=== PATIENT | female | born 1995 | race African-American/Black ===

== ENCOUNTER 2019-11-21 19:20 | Inpatient (IN) ==
[2019-11-21 19:53] LABS: Apearance,Urine CLEAR (Clear); Bacteria,Urine Occasional /HPF (Few); Bilirubin,Urine Negative (Negative); Blood, Urine Negative (Negative); Glucose,Urine (UA) Negative (Negative); Ketones,Urine Negative (Negative); Mucus,Urine Occasional /LPF (Occasional); Nitrite,Urine Negative (Negative); Protein,Urine Negative; RBC,Urine 1 /HPF (0-4); Squamous Epithelial Cell,Urine Occasional /HPF (0-10); Urine Color Straw (Yellow); Urine Specific Gravity 1.006 (1.001-1.035); Urine Urobilinogen < 2.0 EU/DL (0.2-1.0); WBC,Urine 5 /HPF (0-6)
[2019-11-21] MEDS ORDERED: LACTATED RINGERS 1,000 ML IV ONE (20:02)
[2019-11-21] MEDS ORDERED: AMPICILLIN INJ 2,000 MG in SODIUM CHLORIDE 0.9% 100 ML IV ONE (20:29)
[2019-11-21] MEDS ORDERED: CITRIC ACID/SODIUM CITRATE 30 ML UDCUP PO PRN (21:56)
[2019-11-21] MEDS ORDERED: ceFAZolin 2,000 MG in PREMIX 1 EACH IV PRN (21:56)
[2019-11-21] MEDS ORDERED: FAMOTIDINE 20 MG/2 ML VIAL IV PRN (21:56)
[2019-11-21] MEDS: LACTATED RINGERS 1,000 ML IV SCH (22:12)
[2019-11-22 05:53] LABS: Basophils % 0.4 % (0.0-0.8); Eosinophils # 0.1 10*3/uL (0.0-0.87); Eosinophils % 1.4 % (0.00-10.9); Hematocrit 30.7 VOL% (35.7-47.0); Hemoglobin 10.2 GM/DL (12.0-16.0); Immature Granulocytes % 0.9 %; Immature Granulocytes Absolute 0.06 #; Lymphocytes # 3.1 10*3/uL (1.4-4.0); Lymphocytes % 43.6 % (21.3-54.2); Mean Corpuscular HGB Conc 33.2 GM/DL (32-36); Mean Corpuscular Volume 88.5 FL (87-102); Mean Platelet Volume 11.6 FL (9.6-12.0); Neutrophils % 45.7 % (38.7-73.9); Platelet Count 164 T/CUMM (130-400); Red Blood Count 3.47 MC/CUMM (3.8-5.5); Red Cell Distribution Width 13.8 % (9.3-17.3)
[2019-11-22 06:16] LABS: Albumin 2.2 G/DL (3.4-5.0); Bilirubin,Total 0.4 MG/DL (0.2-1.0); Calcium 8.2 MG/DL (8.5-10.1); Osmolality,Calculated 281.8 MOS/KG (273-304)
[2019-11-22] MEDS ORDERED: OXYTOCIN 10 UNIT/ML VIAL IM ONE (07:37)
[2019-11-22] MEDS ORDERED: OXYTOCIN/LR 30 UNIT/1,000 ML BAG IV ONE (07:37)
[2019-11-22] MEDS: LACTATED RINGERS 1,000 ML IV SCH (09:41)
[2019-11-22] MEDS ORDERED: IBUPROFEN 800 MG TABLET PO PRN (11:15)
[2019-11-22] MEDS ORDERED: RHO(D) IMMUNE GLOBULIN 300 MCG SYRINGE IM ONE (11:15)
[2019-11-22] MEDS ORDERED: ACETAMINOPHEN 325 MG TABLET PO PRN ×2 (11:15→11:42)
[2019-11-22] MEDS ORDERED: SIMETHICONE CHEW 80 MG TABLET PO PRN ×2 (11:15→11:42)
[2019-11-22] MEDS ORDERED: OXYTOCIN/LR 20 UNIT/1,000 ML BAG IV ONE ×2 (11:15→11:42)
[2019-11-22] MEDS ORDERED: ONDANSETRON 4 MG/2 ML VIAL IV PRN ×2 (11:15→11:42)
[2019-11-22 11:17] LABS: Apearance,Urine CLEAR (Clear); Bilirubin,Urine Negative (Negative); Blood, Urine Negative (Negative); Glucose,Urine (UA) Negative (Negative); Ketones,Urine 20 mg/dL (Negative); Mucus,Urine Occasional /LPF (Occasional); Nitrite,Urine Negative (Negative); Protein,Urine Negative; RBC,Urine <1 /HPF (0-4); Squamous Epithelial Cell,Urine Occasional /HPF (0-10); Urine Color Yellow (Yellow); Urine Specific Gravity 1.011 (1.001-1.035); Urine Urobilinogen < 2.0 EU/DL (0.2-1.0); WBC,Urine 1 /HPF (0-6)
[2019-11-22 11:26] LABS: Cord Arterial Blood HCO3 20.8 MMOL/L
[2019-11-22] MEDS ORDERED: MORPHINE 10 MG/10 ML VIAL ONE (11:26)
[2019-11-22] MEDS ORDERED: GLYCOPYRROLATE 0.4 MG/2 ML VIAL ONE (11:26)
[2019-11-22] MEDS ORDERED: fentaNYL 100 MCG/2 ML VIAL ONE (11:26)
[2019-11-22] MEDS ORDERED: PHENYLEPHRINE 1 MG/10 ML SYRINGE IV ONE (11:26)
[2019-11-22 11:27] LABS: Cord Venous Blood HCO3 24.4 MMOL/L; Cord Venous Blood PCO2 47.5 MMHG
[2019-11-22] MEDS ORDERED: BUPIVACAINE SPINAL 0.75% 2 ML AMP SPINAL ONE (11:27)
[2019-11-22] MEDS ORDERED: LACTATED RINGERS 1,000 ML IV SCH (11:30)
[2019-11-22] MEDS ORDERED: MAGNESIUM HYDROXIDE SUSP 30 ML UDCUP PO PRN (11:42)
[2019-11-22] MEDS ORDERED: HYDROmorphone 2 MG/1 ML VIAL IV ONE (13:18)
[2019-11-22] MEDS ORDERED: SODIUM CHLORIDE 0.9% 50 ML IV ONE (17:40)
[2019-11-22] MEDS: ceFAZolin 1,000 MG in SYRINGE 1 EACH IV SCH (17:47)
[2019-11-22 19:31] LABS: Basophils % 0.2 % (0.0-0.8); Eosinophils % 0.4 % (0.00-10.9); Hematocrit 32.6 VOL% (35.7-47.0); Hemoglobin 10.7 GM/DL (12.0-16.0); Immature Granulocytes % 0.5 %; Immature Granulocytes Absolute 0.04 #; Lymphocytes # 1.7 10*3/uL (1.4-4.0); Mean Corpuscular HGB Conc 32.8 GM/DL (32-36); Mean Corpuscular Volume 88.1 FL (87-102); Mean Platelet Volume 11.5 FL (9.6-12.0); Monocytes % 7.9 % (1.7-12.7); Platelet Count 159 T/CUMM (130-400); Red Cell Distribution Width 13.7 % (9.3-17.3); White Blood Count 8.4 T/CUMM (4-12)
[2019-11-22] MEDS ORDERED: DOCUSATE SODIUM 100 MG CAPSULE PO SCH (21:00)
[2019-11-22] MEDS: DOCUSATE SODIUM 100 MG CAPSULE PO SCH (21:18)
[2019-11-23] MEDS: ceFAZolin 1,000 MG in SYRINGE 1 EACH IV SCH (02:17)
[2019-11-23 05:30] LABS: Basophils % 0.3 % (0.0-0.8); Eosinophils # 0.1 10*3/uL (0.0-0.87); Eosinophils % 0.8 % (0.00-10.9); Hematocrit 27.6 VOL% (35.7-47.0); Hemoglobin 9.2 GM/DL (12.0-16.0); Immature Granulocytes % 0.6 %; Immature Granulocytes Absolute 0.05 #; Lymphocytes # 2.1 10*3/uL (1.4-4.0); Lymphocytes % 26.8 % (21.3-54.2); Mean Corpuscular HGB Conc 33.3 GM/DL (32-36); Mean Corpuscular Volume 88.2 FL (87-102); Mean Platelet Volume 11.3 FL (9.6-12.0); Neutrophils % 63.5 % (38.7-73.9); Platelet Count 144 T/CUMM (130-400); Red Blood Count 3.13 MC/CUMM (3.8-5.5); Red Cell Distribution Width 13.5 % (9.3-17.3); White Blood Count 7.9 T/CUMM (4-12)
[2019-11-23] MEDS ORDERED: MULTIVITAMIN (PRENATAL) TABLET PO SCH (09:00)
[2019-11-23] MEDS: MULTIVITAMIN (PRENATAL) TABLET PO SCH (09:30)
[2019-11-23] MEDS: FERROUS SULFATE 325 MG TABLET PO SCH ×2 (09:30→21:59)
[2019-11-23] MEDS: MAGNESIUM HYDROXIDE SUSP 30 ML UDCUP PO PRN ×2 (09:30→21:59)
[2019-11-23] MEDS: DOCUSATE SODIUM 100 MG CAPSULE PO SCH ×2 (09:30→21:59)
[2019-11-23] MEDS: POTASSIUM CHLORIDE 20 MEQ TABLET PO SCH ×2 (09:30→21:59)
[2019-11-23] MEDS: IBUPROFEN 800 MG TABLET PO PRN ×2 (10:00→18:39)
[2019-11-23] MEDS: METOCLOPRAMIDE 10 MG TABLET PO SCH (23:59)
[2019-11-24] MEDS: FERROUS SULFATE 325 MG TABLET PO SCH (08:41)
[2019-11-24] MEDS: MULTIVITAMIN (PRENATAL) TABLET PO SCH (08:41)
[2019-11-24] MEDS: IBUPROFEN 800 MG TABLET PO PRN (08:41)
[2019-11-24] MEDS: DOCUSATE SODIUM 100 MG CAPSULE PO SCH (08:41)
[2019-11-24] MEDS: POTASSIUM CHLORIDE 20 MEQ TABLET PO SCH (08:41)
[2019-11-24] MEDS: METOCLOPRAMIDE 10 MG TABLET PO SCH (08:42)
[2019-11-24] MEDS ORDERED: MAGNESIUM HYDROXIDE SUSP 30 ML UDCUP PO SCH (09:00)
[2019-11-24 09:38] VITALS: BP 119/67
== END 2019-11-24 11:20 | disposition home or self-care (01) | DRG 788 ==
LOC: N.LDOUT 19:20 → N.LD 19:22 → N.OB 11-22 15:32
PROVIDERS: ADMIT Obstetrics & Gynecology; ATTEND Obstetrics & Gynecology
PROC: LDCSECT (ICD-10-PCS; 2019-11-22 09:30)

== ENCOUNTER 2020-10-17 09:57 | Inpatient (IN) ==
[2020-10-17] MEDS ORDERED: FAMOTIDINE 20 MG/2 ML VIAL IV ONE (10:22)
[2020-10-17] MEDS ORDERED: ceFAZolin 2,000 MG in PREMIX 1 EACH IV ONE (10:22)
[2020-10-17] MEDS ORDERED: CITRIC ACID/SODIUM CITRATE 30 ML UDCUP PO ONE (10:22)
[2020-10-17] MEDS ORDERED: OXYTOCIN 10 UNIT/ML VIAL IM ONE (10:24)
[2020-10-17] MEDS ORDERED: OXYTOCIN/LR 30 UNIT/1,000 ML BAG IV ONE (10:24)
[2020-10-17] MEDS ORDERED: LACTATED RINGERS 1,000 ML IV ONE ×2 (10:24→15:21)
[2020-10-17] MEDS ORDERED: LACTATED RINGERS 1,000 ML IV SCH ×2 (10:30→16:30)
[2020-10-17 10:58] LABS: Basophils % 0.3 % (0.0-0.8); Eosinophils % 0.5 % (0.00-10.9); Hematocrit 31.1 VOL% (35.7-47.0); Hemoglobin 10.2 GM/DL (12.0-16.0); Immature Granulocytes % 1.4 %; Immature Granulocytes Absolute 0.09 #; Lymphocytes # 1.7 10*3/uL (1.4-4.0); Lymphocytes % 25.9 % (21.3-54.2); Mean Corpuscular HGB Conc 32.8 GM/DL (32-36); Mean Corpuscular Volume 80.2 FL (87-102); Mean Platelet Volume 11.3 FL (9.6-12.0); Monocytes % 7.9 % (1.7-12.7); Platelet Count 211 T/CUMM (130-400); Red Blood Count 3.88 MC/CUMM (3.8-5.5); Red Cell Distribution Width 14.1 % (9.3-17.3); White Blood Count 6.5 T/CUMM (4-12)
[2020-10-17 11:21] LABS: Alanine Aminotransferase < 9 U/L (13-56); Albumin 2.7 G/DL (3.4-5.0); Alkaline Phosphatase 128 U/L (45-117); Aspartate Amino Transferase 11 U/L (0-37); Blood Urea Nitrogen 4 MG/DL (7-18); Calcium 8.8 MG/DL (8.5-10.1); Estimated Glom Filtration Rate 207 ML/MIN; Glucose 81 MG/DL (74-106); Osmolality,Calculated 270.7 MOS/KG (273-304)
[2020-10-17] MEDS ORDERED: TRANEXAMIC ACID 1,000 MG/10 ML VIAL ONE (14:27)
[2020-10-17] MEDS ORDERED: miSOPROStoL 200 MCG TABLET ONE (14:27)
[2020-10-17] MEDS ORDERED: METHYLERGONOVINE 0.2 MG/1 ML AMP ONE (14:28)
[2020-10-17] MEDS ORDERED: CARBOPROST TROMETHAMINE 250 MCG/ML AMP IM ONE (14:28)
[2020-10-17] MEDS ORDERED: PHENYLEPHRINE 1 MG/10 ML SYRINGE IV ONE ×3 (14:52→15:41)
[2020-10-17] MEDS ORDERED: ONDANSETRON 4 MG/2 ML VIAL ONE (14:52)
[2020-10-17] MEDS ORDERED: fentaNYL 100 MCG/2 ML VIAL ONE (14:53)
[2020-10-17] MEDS ORDERED: MORPHINE 10 MG/10 ML VIAL ONE (14:53)
[2020-10-17] MEDS ORDERED: LIDOCAINE 2% 5 ML VIAL ONE (15:20)
[2020-10-17] MEDS ORDERED: BUPIVACAINE SPINAL 0.75% 2 ML AMP SPINAL ONE (15:20)
[2020-10-17] MEDS ORDERED: PROMETHAZINE 25 MG/1 ML VIAL ONE (15:44)
[2020-10-17 15:51] LABS: Cord Arterial Blood HCO3 20.7 MMOL/L
[2020-10-17 15:54] LABS: Cord Venous Blood HCO3 21.2 MMOL/L; Cord Venous Blood PCO2 49.6 MMHG; Cord Venous Blood PO2 24.6
[2020-10-17] MEDS ORDERED: OXYTOCIN/LR 20 UNIT/1,000 ML BAG IV ONE ×2 (16:00→16:06)
[2020-10-17 16:04] LABS: Bilirubin,Urine Negative (Negative); Blood, Urine Negative (Negative); Glucose,Urine (UA) Negative (Negative); Ketones,Urine 80 mg/dL (Negative); Mucus,Urine Occasional /LPF (Occasional); Nitrite,Urine Negative (Negative); Protein,Urine Negative; RBC,Urine <1 /HPF (0-4); Squamous Epithelial Cell,Urine Occasional /HPF (0-10); Urine Appearance CLEAR (Clear); Urine Color Straw (Yellow); Urine Specific Gravity 1.009 (1.001-1.035); Urine Urobilinogen < 2.0 EU/DL (0.2-1.0); WBC,Urine 1 /HPF (0-6)
[2020-10-17] MEDS ORDERED: RHO(D) IMMUNE GLOBULIN 300 MCG SYRINGE IM ONE (16:06)
[2020-10-17] MEDS ORDERED: ONDANSETRON 4 MG/2 ML VIAL IV PRN (16:06)
[2020-10-17] MEDS ORDERED: MAGNESIUM HYDROXIDE SUSP 30 ML UDCUP PO PRN (16:06)
[2020-10-17] MEDS ORDERED: SIMETHICONE CHEW 80 MG TABLET PO PRN (16:06)
[2020-10-17] MEDS ORDERED: ACETAMINOPHEN 325 MG TABLET PO PRN (16:06)
[2020-10-17] MEDS ORDERED: HYDROmorphone 2 MG/1 ML VIAL IV ONE (17:51)
[2020-10-17] MEDS: ceFAZolin 1,000 MG in SYRINGE 1 EACH IV SCH (23:12)
[2020-10-18 01:38] LABS: Basophils % 0.4 % (0.0-0.8); Eosinophils % 0.3 % (0.00-10.9); Hematocrit 27.6 VOL% (35.7-47.0); Hemoglobin 8.9 GM/DL (12.0-16.0); Immature Granulocytes % 0.6 %; Immature Granulocytes Absolute 0.04 #; Lymphocytes # 1.4 10*3/uL (1.4-4.0); Lymphocytes % 19.7 % (21.3-54.2); Mean Corpuscular HGB Conc 32.2 GM/DL (32-36); Mean Corpuscular Volume 80.5 FL (87-102); Mean Platelet Volume 10.9 FL (9.6-12.0); Monocytes % 8.6 % (1.7-12.7); Neutrophils % 70.4 % (38.7-73.9); Platelet Count 182 T/CUMM (130-400); Red Blood Count 3.43 MC/CUMM (3.8-5.5); Red Cell Distribution Width 14.1 % (9.3-17.3); White Blood Count 6.9 T/CUMM (4-12)
[2020-10-18] MEDS: DOCUSATE SODIUM 100 MG CAPSULE PO SCH ×2 (05:44→09:38)
[2020-10-18] MEDS: ceFAZolin 1,000 MG in SYRINGE 1 EACH IV SCH (06:48)
[2020-10-18 09:04] LABS: Basophils % 0.1 % (0.0-0.8); Eosinophils # 0.1 10*3/uL (0.0-0.87); Eosinophils % 0.7 % (0.00-10.9); Hematocrit 28.9 VOL% (35.7-47.0); Hemoglobin 9.5 GM/DL (12.0-16.0); Immature Granulocytes % 0.7 %; Immature Granulocytes Absolute 0.05 #; Lymphocytes # 1.4 10*3/uL (1.4-4.0); Lymphocytes % 19.2 % (21.3-54.2); Mean Corpuscular HGB Conc 32.9 GM/DL (32-36); Mean Corpuscular Volume 80.3 FL (87-102); Mean Platelet Volume 11.2 FL (9.6-12.0); Monocytes % 9.6 % (1.7-12.7); Neutrophils % 69.7 % (38.7-73.9); Platelet Count 181 T/CUMM (130-400); Red Cell Distribution Width 14.1 % (9.3-17.3); White Blood Count 7.2 T/CUMM (4-12)
[2020-10-18] MEDS: MULTIVITAMIN (PRENATAL) TABLET PO SCH (09:38)
[2020-10-18] MEDS: FERROUS SULFATE 325 MG TABLET PO SCH (09:38)
[2020-10-18] MEDS: METOCLOPRAMIDE 10 MG TABLET PO SCH (09:38)
[2020-10-18] MEDS: IBUPROFEN 800 MG TABLET PO PRN ×2 (09:39→19:16)
[2020-10-18] MEDS ORDERED: diphenhydrAMINE CAP 25 MG CAPSULE PO PRN (10:41)
[2020-10-19] MEDS: METOCLOPRAMIDE 10 MG TABLET PO SCH ×2 (00:13→12:38)
[2020-10-19] MEDS: FERROUS SULFATE 325 MG TABLET PO SCH ×2 (00:13→09:37)
[2020-10-19] MEDS: DOCUSATE SODIUM 100 MG CAPSULE PO SCH ×2 (00:13→09:37)
[2020-10-19 08:52] VITALS: BP 111/70
[2020-10-19] MEDS: MULTIVITAMIN (PRENATAL) TABLET PO SCH (09:37)
[2020-10-19] MEDS: IBUPROFEN 800 MG TABLET PO PRN (09:45)
== END 2020-10-19 12:30 | disposition home or self-care (01) | DRG 785 ==
LOC: N.LD 09:57 → N.OB 20:20
PROVIDERS: ADMIT Obstetrics & Gynecology; ATTEND Obstetrics & Gynecology